=== PATIENT | male | born 1940 | race Caucasian/White ===

== ENCOUNTER 2016-05-06 12:35 | Emergency (ER) | payer OTHER ==
[~2016-05-06] VITALS: Ht 188 cm; Wt 90.7 kg
[2016-05-06 13:05] VITALS: BP 182/61
--- NOTE | 2016-05-06 13:15 | NUR ---
PATIENT PRESENTS TO ED FOR MEDICATION REFILL . PT STATES HE IS VISITING FAMILY LOCALLY FROM [place] AND FORGOT HIS HTN MEDS AT HOME AND HAS TAKEN THEM IN 5 DAYS . DENIES N/V/D; SKIN IS PINK/WARM/DRY; AAOX4 WITH EVEN AND STEADY GAIT; LUNGS CLEAR BL; HR EVEN AND REGULAR; PT DENIES ANY FEVER, CP, SOB, OR COUGH AT THIS TIME; PATIENT STATES PAIN OF 0/10 AT THIS TIME; VSS; ER MD MADE AWARE OF PT STATUS.
[2016-05-06] MEDS ORDERED: NORVASC2.5 MG PO (13:20)
[2016-05-06] MEDS ORDERED: BENAZEPRIL HCT1 TAB PO (13:20)
--- NOTE | 2016-05-06 13:24 | NUR ---
Patient in [facility].
--- NOTE | 2016-05-06 13:50 | NUR ---
DR VILLALOBOS ASSESSING [facility] PT WITH FAMILY
--- NOTE | 2016-05-06 13:52 | NUR ---
DR. VILLALOBOS EVALUATING PATIENT AT OF.
[2016-05-06] MEDS ORDERED: BENAZEPRIL 20 MG TAB PO ONE (14:05)
[2016-05-06] MEDS ORDERED: amLODIPine 5 MG TAB PO ONE (14:05)
[2016-05-06 14:45] VITALS: BP 157/71
--- NOTE | 2016-05-06 14:45 | NUR ---
Patient discharged with v/s stable. Written and verbal after care instructions given and explained. Patient alert, oriented and verbalized understanding of instructions. Ambulatory with steady gait. All questions addressed prior to discharge. ID band removed. Patient advised to follow up with PMD. Rx of BENAZEPRIL, AMLOPIDINE given. Patient educated on indication of medication including possible reaction and side effects. Opportunity to ask questions provided and answered.
== END 2016-05-06 14:45 | disposition home or self-care (01) ==
LOC: MED 12:35
DX: Z76.0 Encounter for issue of repeat prescription (principal); I10 Essential (primary) hypertension